=== PATIENT | female | born 1995 | race Caucasian/White ===

== ENCOUNTER 2018-07-17 12:26 | Emergency (ER) | payer OTHER ==
[~2018-07-17] VITALS: Ht 165.1 cm; Wt 63.6 kg
[2018-07-17] MEDS ORDERED: SYNT100T PO (12:39)
[2018-07-17] MEDS ORDERED: MICR1TAB16 PO (12:39)
[2018-07-17 12:40] VITALS: BP 114/77
[2018-07-17] MEDS ORDERED: NS 1,000 ML IV SCH (12:45)
[2018-07-17] MEDS ORDERED: ACETAMINOPHEN 500 MG TAB PO ONE (13:45)
[2018-07-17] MEDS ORDERED: KETOROLAC 30 MG/ML VIAL (J1885) IV ONE (14:45)
--- NOTE | 2018-07-17 15:05 | REP ---
HISTORY: Pain after trauma. FINDINGS: No acute fracture or destructive osseous lesion. Electronically Signed by Elieser Mahoney DO 07/17/2018 03:40 P
--- NOTE | 2018-07-17 15:06 | REP ---
HISTORY: Pain after trauma. FINDINGS: No acute fracture or destructive osseous lesion. The mortise is intact. Electronically Signed by Elieser Mahoney DO 07/17/2018 03:40 P
--- NOTE | 2018-07-17 17:57 | ECGEPIP ---
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
== END 2018-07-17 15:01 | disposition home or self-care (01) ==
LOC: EDBD 12:26 → M ED 12:26
DX: T69.8XXA Other specified effects of reduced temperature, initial encounter (principal); X31.XXXA Exposure to excessive natural cold, initial encounter; Y92.89 Other specified places as the place of occurrence of the external cause; E06.3 Autoimmune thyroiditis; Z79.899 Other long term (current) drug therapy; Z79.3 Long term (current) use of hormonal contraceptives
CPT/HCPCS: 73590; 73610; 80047; 84702; 93005; 96361; 96374; 99284; J1885

== ENCOUNTER 2018-09-08 13:35 | Emergency (ER) | payer OTHER ==
[~2018-09-08] VITALS: Ht 165.1 cm; Wt 65.5 kg
[~2018-09-08 13:35] MED LIST: MICR1TAB16 PO; SYNT100T PO
[2018-09-08 14:42] LABS: BASO % 0.6 % (0.0-1.0); EOS # 0.1 10^3/uL (0.0-0.50); EOS % 1.7 % (0.0-3.0); HEMATOCRIT 40.4 % (36.0-47.0); HEMOGLOBIN 13.7 g/dl (12.0-15.5); LYMPH # 2.2 10^3/uL (1.5-6.5); LYMPH % 32.9 % (24.0-44.0); MEAN CORPUSCULAR HEMOGLOBIN 30.8 pg (27.0-33.0); MEAN CORPUSCULAR HGB CONC 33.9 g/dl (32.0-36.5); MEAN CORPUSCULAR VOLUME 90.8 fl (80.0-96.0); MONO # 0.7 10^3/uL (0.0-0.8); NEUTROPHILS # 3.5 10^3/uL (1.8-7.7); NEUTROPHILS % 53.5 % (36.0-66.0); PLATELET COUNT, AUTOMATED 302 10^3/uL (150-450); RED BLOOD COUNT 4.45 10^6/uL (4.00-5.40); WHITE BLOOD COUNT 6.6 10^3/uL (4.0-10.0)
[2018-09-08 15:12] LABS: BLOOD UREA NITROGEN 9 MG/DL (7-18); CALCIUM LEVEL 8.7 MG/DL (8.5-10.1); CARBON DIOXIDE LEVEL 27 MEQ/L (21-32); CHLORIDE LEVEL 105 MEQ/L (98-107); CREATININE FOR GFR 0.88 MG/DL (0.55-1.30); GLOMERULAR FILTRATION RATE > 60.0 (>60); GLUCOSE, FASTING 75 MG/DL (70-100); POTASSIUM SERUM 3.9 MEQ/L (3.5-5.1); SODIUM LEVEL 139 MEQ/L (136-145)
[2018-09-08] MEDS ORDERED: ISOVUE-370 76% 100ML VIAL (Q9967) As Ordered ONE (15:25)
[2018-09-08 15:42] LABS: ALBUMIN 3.9 GM/DL (3.2-5.2); ALT/SGPT 20 U/L (12-78); BILIRUBIN,DIRECT 0.1 MG/DL (0.0-0.2); BILIRUBIN,TOTAL 0.4 MG/DL (0.2-1.0); LIPASE 122 U/L (73-393); TOTAL PROTEIN 7.4 GM/DL (6.4-8.2)
--- NOTE | 2018-09-08 17:23 | REP ---
CT ABDOMEN AND PELVIS WITH IV CONTRAST: TECHNIQUE: Axial contrast enhanced images from the lung bases to the pubic symphysis using 100 mL Isovue 370 intravenous contrast material with multiplanar reformations. The visualized lung bases are clear. The liver and gallbladder are unremarkable. I do not see evidence of biliary dilatation. The spleen, adrenals, pancreas, and kidneys are unremarkable. There is no hydronephrosis. There is no abdominal aortic aneurysm. There is no adenopathy. There is no free air. No bowel wall thickening is seen. There is no evidence of appendicitis. No pelvic mass or ovarian cyst is seen. There is trace free fluid in the pelvis which may be physiologic. Urinary bladder is grossly unremarkable. IMPRESSION: No evidence of appendicitis. No evidence of hydronephrosis. No evidence of ovarian cyst. Trace free fluid in the pelvis is likely physiologic. Electronically Signed by Percy Bowen MD 09/09/2018 01:52 P
[2018-09-08 18:15] VITALS: BP 115/66
== END 2018-09-08 18:20 | disposition home or self-care (01) ==
LOC: M ED 13:35
DX: R10.31 Right lower quadrant pain (principal); E06.3 Autoimmune thyroiditis; Z79.899 Other long term (current) drug therapy; Z79.3 Long term (current) use of hormonal contraceptives
CPT/HCPCS: 74177; 80048; 80076; 81001; 83690; 84702; 85025; 99284; Q9967